=== PATIENT | female | born 1985 | race Caucasian/White ===

== ENCOUNTER → 2021-03-12 | Outpatient (CLI) | payer OTHER ==
[~2021-03-12] MED LIST: ALTACE CAP 5MG5 MG PO; BACLOFEN10 MG PO; GLUCOPHAGE 500500 MG PO; HYDROXYZINE PAM25 MG PO; IBUPROFEN600 MG PO; JARDIANCE25 MG PO; LEVOCETIRIZINE D5 MG PO; LEVOTHYROXINE50 MCG PO; METFORMIN HCL1000 MG PO; PERCOCET 5/325 T1 EA PO; SERTRALINE HCL100 MG PO; TRAZODONE HCL150 MG PO
== END ==
LOC: MRI 09:51
DX: R41.0 Disorientation, unspecified (principal); Z82.0 Family history of epilepsy and other diseases of the nervous system
CPT/HCPCS: 36415; 70553; 82565; 84520; A9577

== ENCOUNTER 2021-03-18 10:05 | Observation (INO) | payer OTHER ==
[~2021-03-18] VITALS: Ht 175.3 cm; Wt 149.7 kg
[~2021-03-18 10:05] MED LIST changes: -ALTACE CAP 5MG5 MG PO; -BACLOFEN10 MG PO; -GLUCOPHAGE 500500 MG PO; -HYDROXYZINE PAM25 MG PO; -JARDIANCE25 MG PO; -LEVOCETIRIZINE D5 MG PO; -LEVOTHYROXINE50 MCG PO; -METFORMIN HCL1000 MG PO; -SERTRALINE HCL100 MG PO; -TRAZODONE HCL150 MG PO
[2021-03-18 10:44] LABS: HEMOGLOBIN 14.8 gm/dl (12.3-15.3); RED BLOOD COUNT 4.98 M/UL (4.00-5.10); WHITE BLOOD COUNT 9.5 K/UL (4.5-11.0)
[2021-03-18 11:11] LABS: BUN/CREATININE RATIO 16 (0-10)
[2021-03-18] MEDS ORDERED: SERTRALINE HCL100 MG PO (17:46)
[2021-03-18] MEDS ORDERED: TRAZODONE HCL150 MG PO (17:46)
[2021-03-18] MEDS ORDERED: ALTACE CAP 5MG5 MG PO (17:46)
[2021-03-18] MEDS ORDERED: LEVOTHYROXINE50 MCG PO (17:47)
[2021-03-18] MEDS ORDERED: BACLOFEN10 MG PO (17:47)
[2021-03-18] MEDS ORDERED: JARDIANCE25 MG PO (17:47)
[2021-03-18] MEDS ORDERED: HYDROXYZINE PAM25 MG PO (17:47)
[2021-03-18] MEDS ORDERED: LEVOCETIRIZINE D5 MG PO (17:48)
[2021-03-18] MEDS ORDERED: METFORMIN HCL1000 MG PO (17:48)
[2021-03-18] MEDS ORDERED: GLUCOPHAGE 500500 MG PO (17:49)
[2021-03-19 06:40] LABS: HEMOGLOBIN 14.2 gm/dl (12.3-15.3); RED BLOOD COUNT 5.05 M/UL (4.00-5.10); WHITE BLOOD COUNT 7.9 K/UL (4.5-11.0)
[2021-03-19 06:59] LABS: BUN/CREATININE RATIO 18 (0-10)
== END 2021-03-19 14:00 | disposition home or self-care (01) ==
LOC: ER1 10:05 → CDU 12:56 → MED SURG 4 13:17
PROVIDERS: Emergency Medicine; Physician Assistant Medical; ADMIT Internal Medicine
DX: R07.89 Other chest pain (principal); I11.9 Hypertensive heart disease without heart failure; E11.9 Type 2 diabetes mellitus without complications; E03.9 Hypothyroidism, unspecified; I27.20 Pulmonary hypertension, unspecified; E66.01 Morbid (severe) obesity due to excess calories; J98.11 Atelectasis; I07.1 Rheumatic tricuspid insufficiency; J30.2 Other seasonal allergic rhinitis; R94.31 Abnormal electrocardiogram [ECG] [EKG]; Z79.84 Long term (current) use of oral hypoglycemic drugs; Z79.899 Other long term (current) drug therapy; Z88.5 Allergy status to narcotic agent; Z87.74 Personal history of (corrected) congenital malformations of heart and circulatory system; Z82.49 Family history of ischemic heart disease and other diseases of the circulatory system; Z20.822 Contact with and (suspected) exposure to COVID-19
CPT/HCPCS: ECHO; 36415; 71045; 80048; 80053; 82550; 82553; 82962; 83735; 83874; 84484; 85025; 85027; 85379; 93005; 93306; G0378; U0002

== ENCOUNTER → 2021-04-06 | Outpatient (CLI) | payer OTHER ==
[~2021-04-06] MED LIST changes: +ALTACE CAP 5MG5 MG PO; +BACLOFEN10 MG PO; +GLUCOPHAGE 500500 MG PO; +HYDROXYZINE PAM25 MG PO; +JARDIANCE25 MG PO; +LEVOCETIRIZINE D5 MG PO; +LEVOTHYROXINE50 MCG PO; +METFORMIN HCL1000 MG PO; +SERTRALINE HCL100 MG PO; +TRAZODONE HCL150 MG PO
== END ==
LOC: KOH-I 15:00
DX: M79.605 Pain in left leg (principal)
CPT/HCPCS: 93971